=== PATIENT | female | born 1985 | race Caucasian/White ===

== ENCOUNTER 2016-12-31 12:32 | Emergency (ER) | payer OTHER ==
[2016-12-31] MEDS: NS 0.9% 1000 ML* 2,000 ML IV ONE ×2 (13:31→13:32)
[2016-12-31 13:37] LABS: Hematocrit 42 % (35-47); Hemoglobin 14.1 g/dl (12.0-16.0); Mean Corpuscular HGB Conc 34 g/dl (31-36); Mean Corpuscular Hemoglobin 32 pg (27-31); Mean Corpuscular Volume 94 fL (80-97); Mean Platelet Volume 8 um3 (7.4-10.4); Red Blood Count 4.43 10^6/ul (4.0-5.4); Red Cell Distribution Width 13 % (10.5-15); White Blood Count 7.3 10^3/ul (3.5-10.8)
[2016-12-31 14:00] LABS: ALT 19 U/L (7-52); AST 18 U/L (13-39); Albumin 4.1 g/dL (3.2-5.2); Alkaline Phosphatase 58 U/L (34-104); Anion Gap 7 mmol/L (2-11); BUN/Creatinine Ratio 9.9 (8-20); Blood Urea Nitrogen 10 mg/dL (6-24); CO2 Carbon Dioxide 23 mmol/L (22-32); Calcium 9.4 mg/dL (8.6-10.3); Chloride 105 mmol/L (101-111); EGFR African American 81.2 (>60); EGFR Non-African American 63.1 (>60); Globulin 3.4 g/dL (2-4); Glucose 91 mg/dL (70-100); Lipase 13 U/L (11.0-82.0); Potassium 4.1 mmol/L (3.5-5.0); Sodium 135 mmol/L (133-145); Total Protein 7.5 g/dL (6.4-8.9)
[2016-12-31] MEDS ORDERED: Iohexol 300* (CONTRAST) 10 ML SDV IV ONE (14:06)
--- NOTE | 2016-12-31 15:17 | RAD ---
HISTORY: Right lower quadrant pain July 03, 2006 COMPARISONS: None TECHNIQUE: Multiple transverse and longitudinal ultrasound images were obtained of the pelvis using grayscale, color Doppler, and spectral Doppler imaging using the transabdominal and endovaginal transducers. FINDINGS: UTERUS: The uterus measures 6.1 x 2.7 x 3.3 cm. The uterus is normal in shape, size, contour, and echotexture. ENDOMETRIUM: The endometrial stripe is smooth. The endometrium measures 0.3 cm in thickness. There is a small amount of fluid within the endometrial cavity. CUL-DE-SAC: There is no free fluid within the cul-de-sac. RIGHT OVARY: The right ovary measures 2.9 x 1.5 x 3 cm. Normal arterial and venous waveforms are identifiable within the ovary on spectral Doppler imaging. Multiple follicles are noted including a 1 cm follicular cyst. LEFT OVARY: The left ovary measures 1.1 x 0.7 x 1.3 cm. The left ovary is not well visualized. Normal arterial and venous waveforms are identifiable within the ovary on spectral Doppler imaging. . BLADDER: The visualized bladder is unremarkable. IMPRESSION: 1. LIMITED EVALUATION OF THE LEFT OVARY. 2. SMALL AMOUNT OF FLUID WITHIN THE ENDOMETRIAL CAVITY. 3. NO SONOGRAPHIC FEATURES OF TORSION. PLEASE NOTE THAT PARTIAL OR INTERMITTENT TORSION MAY BE SONOGRAPHICALLY NORMAL.
--- NOTE | 2016-12-31 15:22 | RAD ---
INDICATION: Periumbilical pain COMPARISON: None TECHNIQUE: Axial source images were obtained from the hemidiaphragms to the symphysis pubis following administration of oral and intravenous contrast. 80 mL Omnipaque 300 was utilized. Coronal and sagittal reconstructed images were acquired. Lung bases: The lung bases are clear. Liver: The liver is normal in size. There are no masses. There is no ductal dilatation. Gallbladder: There are no calcified gallstones. There is no evidence of wall thickening or pericholecystic fluid. Spleen: The spleen is normal in size. There are no masses. Pancreas: There is no focal pancreatic mass or ductal dilatation. Adrenal glands: There is no evidence of adrenal mass. Kidneys: The kidneys are normal in size and position. There are prompt nephrograms and there is prompt excretion bilaterally. There are no renal parenchymal masses. There is no evidence of nephrolithiasis. Adenopathy: There is no evidence of adenopathy by size criteria. Fluid collections: There are no free or localized fluid collections. Vessels:There are no significant atherosclerotic changes involving the aorta. There is no focal aneurysm. The iliac vessels are normal in caliber. The IVC appears normal. GI tract: The stomach and duodenum appear normal. There are several other prominent loops of air-filled small bowel with scattered air-fluid levels in the epigastric region. There is no sharp zone of transition. The remainder of the small bowel appears normal to include the ileocecal valve. There is moderate stool throughout the colon. The appendix is identified and appears normal. Pelvic organs: The uterus and adnexa appear normal Bladder: There are no bladder masses. Abdominal and pelvic soft tissues: The extraperitoneal abdominal and pelvic soft tissues appear normal.. Osseous structures: There are no acute osseous findings. Other: None IMPRESSION: MILDLY PROMINENT LOOPS OF SMALL BOWEL IN CENTRAL ABDOMEN WITH SCATTERED AIR-FLUID LEVELS MAY BE RELATED TO A LOCALIZED ILEUS. THERE ARE NO FINDINGS TO SUGGEST OBSTRUCTION. MODERATE STOOL IN THE COLON.
--- NOTE | 2016-12-31 15:22 | ED ---
Abdominal Pain/Female - HPI Summary HPI Summary: 31F presents with umbilical abdominal pain since last night. She was nauseous but that has resolved. She has had her gallbladder removed in the past. She has never had this pain before. She has been having fevers and chills. She denies any dysuria, hematuria, flank pain, urgency, frequency, constipation or diarrhea or vomiting. She has not taken anything for her pain. Her last meal was this morning. She denies any vaginal discharge. She has history of ovarian cyst. No one else is sick. - History of Current Complaint Chief Complaint: EDAbdPain Stated Complaint: ABD PAIN,CHILLS/SENT FROM [facility] Time Seen by Provider: 12/31/16 13:06 Pain Intensity: 0 Allergies/Adverse Reactions: Allergies Allergy/AdvReac Type Severity Reaction Status Date / Time Amoxicillin Allergy Severe HIVES, Verified 12/31/16 13:44 BREATHING DIFF Penicillins Allergy Severe HIVES, Verified 12/31/16 13:44 BREATHING DIFF PMH/Surg Hx/FS Hx/Imm Hx Endocrine/Hematology History: Denies: Hx Diabetes Cardiovascular History: Denies: Hx Hypertension History: Reports: Other Problems/Disorders - HX OF FREQUENT BLADDER INFECTIONS. 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 Denies: Hx Renal Disease Sensory History: Denies: Hx Contacts or Glasses, Hx Hearing Aid Opthamlomology History: Denies: Hx Contacts or Glasses - Surgical History Surgery Procedure, Year, and Place: CHOLECYSTECTOMY Hx Anesthesia Reactions: No Infectious Disease History: No Infectious Disease History: Denies: Traveled Outside the [place] in Last 30 Days - Family History Known Family History: Positive: Cardiac Disease - Social History Alcohol Use: Occasionally Substance Use Type: Reports: None Smoking Status (MU): Never Smoked Tobacco Review of Systems Negative: Fever Negative: Chest Pain Negative: Shortness Of Breath Positive: Abdominal Pain, Nausea. Negative: Diarrhea All Other Systems Reviewed And Are Negative: Yes Physical Exam Triage Information Reviewed: Yes Vital Signs On Initial Exam: Initial Vitals Temp Pulse Resp BP Pulse Ox 100 F 99 18 160/90 99 12/31/16 12:38 12/31/16 12:38 12/31/16 12:38 12/31/16 12:38 12/31/16 12:38 Vital Signs Reviewed: Yes Appearance: Positive: Well-Appearing Skin: Positive: Warm, Dry Head/Face: Positive: Normal Head/Face Inspection Eyes: Positive: Normal, Conjunctiva Clear ENT: Positive: Normal ENT inspection, Pharynx normal, TMs normal Respiratory/Lung Sounds: Positive: Clear to Auscultation, Breath Sounds Present Cardiovascular: Positive: Normal, RRR Abdomen Description: Positive: Soft, Other: - neg rovsings, obturator, tenderness in periumbilicial Bowel Sounds: Positive: Present - Brigido Coma Scale Coma Scale Total: 15 Diagnostics - Vital Signs Vital Signs Temp Pulse Resp BP Pulse Ox 12/31/16 15:18 135/90 12/31/16 15:11 96 100 12/31/16 15:09 94 139/86 99 12/31/16 15:04 99 100 12/31/16 14:00 86 145/98 100 12/31/16 13:30 92 141/98 100 12/31/16 13:24 98 99 12/31/16 13:23 148/97 12/31/16 13:22 99.8 F 99 16 148/97 98 12/31/16 12:38 100 F 99 18 160/90 99 - Laboratory Lab Results: Lab Results 12/31/16 12/31/16 Range/Units 13:30 13:30 WBC 7.3 (3.5-10.8) 10^3/ul RBC 4.43 (4.0-5.4) 10^6/ul Hgb 14.1 (12.0-16.0) g/dl Hct 42 (35-47) % MCV 94 (80-97) fL MCH 32 H (27-31) pg MCHC 34 (31-36) g/dl RDW 13 (10.5-15) % Plt Count 263 (150-450) 10^3/ul MPV 8 (7.4-10.4) um3 Neut % (Auto) 62.1 (38-83) % Lymph % (Auto) 27.7 (25-47) % Meeker % (Auto) 5.9 (1-9) % Eos % (Auto) 3.4 (0-6) % Baso % (Auto) 0.9 (0-2) % Absolute Neuts (auto) 4.5 (1.5-7.7) 10^3/ul Absolute Lymphs (auto) 2.0 (1.0-4.8) 10^3/ul Absolute Monos (auto) 0.4 (0-0.8) 10^3/ul Absolute Eos (auto) 0.2 (0-0.6) 10^3/ul Absolute Basos (auto) 0.1 (0-0.2) 10^3/ul Absolute Nucleated RBC 0.01 10^3/ul Nucleated RBC % 0.1 Sodium 135 (133-145) mmol/L Potassium 4.1 (3.5-5.0) mmol/L Chloride 105 (101-111) mmol/L Carbon Dioxide 23 (22-32) mmol/L Anion Gap 7 (2-11) mmol/L BUN 10 (6-24) mg/dL Creatinine 1.01 H (0.51-0.95) mg/dL Est GFR ( Amer) 81.2 (>60) Est GFR (Non-Af Amer) 63.1 (>60) BUN/Creatinine Ratio 9.9 (8-20) Glucose 91 (70-100) mg/dL Calcium 9.4 (8.6-10.3) mg/dL Total Bilirubin 0.60 (0.2-1.0) mg/dL AST 18 (13-39) U/L ALT 19 (7-52) U/L Alkaline Phosphatase 58 (34-104) U/L C-React Prot High Sens 6.34 mg/L Total Protein 7.5 (6.4-8.9) g/dL Albumin 4.1 (3.2-5.2) g/dL Globulin 3.4 (2-4) g/dL Albumin/Globulin Ratio 1.2 (1-3) Lipase 13 (11.0-82.0) U/L Beta HCG, Quant < 0.60 mIU/mL Result Diagrams: 12/31/16 13:30 12/31/16 13:30 Lab Statement: Any lab studies that have been ordered have been reviewed, and results considered in the medical decision making process. - CT abd CT Interpretation: Positive (See Comments) - IMPRESSION: MILDLY PROMINENT LOOPS OF SMALL BOWEL IN CENTRAL ABDOMEN WITH SCATTERED AIR-FLUID LEVELS MAY BE RELATED TO A LOCALIZED ILEUS. THERE ARE NO FINDINGS TO SUGGEST OBSTRUCTION. MODERATE STOOL IN THE COLON. CT Interpretation Completed By: Radiologist - Ultrasound No standard instances Ultrasound Interpretation: No Acute Changes - IMPRESSION: 1. LIMITED EVALUATION OF THE LEFT OVARY. 2. SMALL AMOUNT OF FLUID WITHIN THE ENDOMETRIAL CAVITY. 3. NO SONOGRAPHIC FEATURES OF TORSION. PLEASE NOTE THAT PARTIAL OR INTERMITTENT TORSION MAY BE SONOGRAPHICALLY NORMAL. Ultrasound Interpretation Completed By: Radiologist Abdominal Pain Fem Course/Dx - Course Course Of Treatment: 31F presents with umbilical abdominal pain since last night. She was nauseous but that has resolved. She has had her gallbladder removed in the past. She has never had this pain before. She has been having fevers and chills. She denies any other symptoms. neg appendicitis signs tender around umblicius. u/s no cyst. CT shows ileus with no obstruction. talked with dr zhao states can get that will viral infection which is consistent with symptoms. labs normal. patient understands and agrees with plan - Diagnoses Differential Diagnosis: Positive: Appendicitis, Ovarian Cyst, Urinary Tract Infection, Other - gastroenteritis Provider Diagnoses: Abdominal pain Discharge - Discharge Plan Condition: Good Disposition: HOME Patient Education Materials: Abdominal Pain (ED) Referrals: Shahnaz Fermin MD [Primary Care Provider] - Additional Instructions: Drink small amounts of fluid as tolerated When able to eat follow BRAT diet: Bananas, rice, applesauce, toast Symptoms likely due to viral gastroenteritis Take ibuprofen or Tylenol for pain as needed every 6 hours Follow up with primary within 7 days if no improvement Return to ED if develop fever that does not respond to Tylenol or ibuprofen, severe abdominal pain, or any new or worsening symptoms
[2016-12-31 16:17] LABS: Urine Bacteria Absent (Absent)
[2016-12-31 16:23] VITALS: BP 127/89
[2016-12-31 16:49] LABS: Urine Bilirubin Negative (Negative); Urine Glucose Negative (Negative); Urine Nitrite Negative (Negative)
== END 2016-12-31 16:32 | disposition home or self-care (01) ==
LOC: ED 12:32
DX: R10.33 Periumbilical pain (principal); Z88.0 Allergy status to penicillin
CPT/HCPCS: 36415; 74177; 76830; 80053; 81003; 81015; 83690; 84702; 85025; 86141; 96360; 99282; Q9967

== ENCOUNTER 2020-12-18 16:55 | Observation (INO) ==
[2020-12-18] MEDS ORDERED: Vancomycin 1,250 MG in NS 0.9% 250 ml 250 ML IVPB ONE (17:57)
[2020-12-18 18:15] LABS: ABS Basophils 0.1 10^3/ul (0-0.2); ABS Eosinophils 0.2 10^3/ul (0-0.6); ABS Monocytes 0.7 10^3/ul (0-0.8); ABS Neutrophils 3.4 10^3/ul (1.5-7.7); Eosinophil % 3.7 %; Hematocrit 40 % (35-47); Hemoglobin 13.7 g/dL (12.0-16.0); Lymphocyte % 31.1 %; Mean Corpuscular HGB Conc 35 g/dL (31-36); Mean Corpuscular Hemoglobin 32 pg (27-31); Mean Corpuscular Volume 93 fL (80-97); Mean Platelet Volume 7.8 fL (7.4-10.4); Nucleated Red Blood Cells % 0.1; Platelet Count 268 10^3/uL (150-450); Red Blood Count 4.26 10^6 /uL (3.70-4.87); Red Cell Distribution Width 13 % (10-15); White Blood Count 6.3 10^3/uL (3.5-10.8)
[2020-12-18 18:36] LABS: ALT 17 U/L (7-52); AST 15 U/L (13-39); Albumin/Globulin Ratio 1.4 (1-3); Alkaline Phosphatase 62 U/L (35-149); Anion Gap 5 mmol/L (2-11); Blood Urea Nitrogen 14 mg/dL (6-24); C Reactive Protein 17.42 mg/L (<8.01); CO2 Carbon Dioxide 25 mmol/L (22-32); Chloride 105 mmol/L (101-111); Globulin 2.9 g/dL (2-4); Glucose 99 mg/dL (70-100); Potassium 4.3 mmol/L (3.5-5.0); Sodium 135 mmol/L (135-145); Total Protein 6.9 g/dL (6.4-8.9)
[2020-12-18] MEDS ORDERED: Vancomycin 1,000 MG in NS 0.9% 250 ml 250 ML IVPB ONE (19:32)
[2020-12-18] MEDS ORDERED: NS 0.9% 1000 ml BAG 1,000 ML IV SCH (19:45)
[2020-12-18] MEDS ORDERED: Vancomycin per Pharmacy 1 EA NOTE FOLLOW UP SCH (20:00)
[2020-12-18 20:43] LABS: HCG Pregnancy < 0.60 mIU/mL
[2020-12-18 20:45] LABS: Erythrocyte Sed Rate 9 mm/Hr (0-19)
[2020-12-18] MEDS: Cefepime 2 GM in Dextrose 2 GM/50 ML BAG IV SCH (22:26)
[2020-12-19 06:09] LABS: ABS Basophils 0.1 10^3/ul (0-0.2); ABS Eosinophils 0.2 10^3/ul (0-0.6); ABS Lymphocytes 2.1 10^3/ul (1.0-4.8); ABS Monocytes 0.6 10^3/ul (0-0.8); Eosinophil % 3.2 %; Hematocrit 38 % (35-47); Hemoglobin 12.9 g/dL (12.0-16.0); Lymphocyte % 35.9 %; Mean Corpuscular HGB Conc 34 g/dL (31-36); Mean Corpuscular Hemoglobin 32 pg (27-31); Mean Corpuscular Volume 94 fL (80-97); Mean Platelet Volume 7.7 fL (7.4-10.4); Platelet Count 248 10^3/uL (150-450); Red Blood Count 4.06 10^6 /uL (3.70-4.87); Red Cell Distribution Width 13 % (10-15); White Blood Count 5.9 10^3/uL (3.5-10.8)
[2020-12-19 06:19] LABS: INR 1.13 (0.82-1.09)
[2020-12-19] MEDS ORDERED: Vancomycin 1000 MG in NS 0.9% 250 ML IVPB SCH (06:30)
[2020-12-19 06:37] LABS: Calcium 8.4 mg/dL (8.6-10.3); EGFR African American 76.4 (>60); EGFR Non-African American 63.1 (>60); Potassium 3.7 mmol/L (3.5-5.0)
[2020-12-19] MEDS: Cefepime 2 GM in Dextrose 2 GM/50 ML BAG IV SCH (08:47)
[2020-12-19 12:08] LABS: Activated Partial Thrombo Time 24.8 seconds (26.0-38.0); INR 1.02 (0.82-1.09)
[2020-12-19 13:52] LABS: Urine Appearance Clear; Urine Bilirubin Negative (Negative); Urine Blood 1+ (Negative); Urine Color Straw; Urine Glucose Negative (Negative); Urine Ketones Negative (Negative); Urine Nitrite Negative (Negative); Urine Protein Negative (Negative); Urine Specific Gravity 1.009 (1.002-1.030); Urine Urobilinogen Negative (Negative)
[2020-12-19 14:01] LABS: Urine Bacteria Absent (Absent); Urine Red Blood Cell Trace(0-2/hpf) (Absent); Urine Squamous Epithelial Cell Present (Absent); Urine White Blood Cell Trace(0-5/hpf) (Absent)
[2020-12-19 15:43] VITALS: BP 139/76
[2020-12-19] MEDS ORDERED: Cefepime 2 GM in NS 0.9% 50 ML 50 ML IVPB SCH (21:00)
[2020-12-19] MEDS ORDERED: cefTRIAXone 1 gm/50 mL NS BAG 1 GM/50 ML BAG IVPB SCH (21:00)
[2020-12-20] MEDS ORDERED: Vancomycin Trough Check NOTE FOLLOW UP ONE (06:00)
[2020-12-20 22:44] LABS: Anaplasma phagocytophilum Negative (Negative); B. miyamotoi PCR, B Negative (Negative); Babesia divergens/MO-1 Negative (Negative); Babesia ducani Negative (Negative); Ehrlichia chaffeensis Negative (Negative); Ehrlichia ewingii/canis Negative (Negative); Ehrlichia muris eauclairensis Negative (Negative)
[2020-12-23 16:51] LABS: IgG Immunoblot Negative (Negative); IgM Immunoblot Negative (Negative)
== END 2020-12-19 16:25 | disposition home or self-care (01) ==
LOC: SSU 16:55 → ED 16:55 → SSU 17:38
PROVIDERS: ADMIT Student in an Organized Health Care Education/Training Program; ATTEND Pediatrics